=== PATIENT | female | born 1955 | race Caucasian/White ===

== ENCOUNTER → 2018-05-04 | Outpatient (CLI) | payer BC ==
[~2018-05-04] MED LIST: ACET325T38 PO; ALLO; ALLOPURINOL PO; ALLP100T PO; ASPI-586 PO; BUPR-168 PO; FENO134C PO; FLUT1DIS26 IH; FURO40TA4 PO; HYDR1TAB66 PO; IBUP-15 PO; IBUP-30 PO; IBUP1TAB17 PO; IBUP50DR PO; LEVO75TA57 PO; LEVO75TA6 PO; LOVA20TA2 PO; LOVA40TA2 PO; LVT.025T PO; LVT.05T PO; METO-272 PO; METO-370 PO; MNTL10T PO; OXYC-12 PO; POTA10CA43 PO; SLMFT1E INH; SPIR50TA27 PO; TERB250T PO; TRIA1TAB3 PO
--- NOTE | 2018-05-04 08:36 | Diagnostic Imaging Report ---
INDICATION: Right upper quadrant pain. TECHNIQUE: Multiple grayscale sonographic images were obtained of the right upper quadrant of the abdomen. CORRELATION STUDY: None. FINDINGS: LIVER: There is overall diffusely increased density throughout the liver parenchyma. This does limit echo penetration and overall evaluation. This is likely largely attributed to fatty infiltration. Within the right lobe, there is a questionable irregular heterogeneous area of increased echogenicity measuring approximately 2 cm. This may correspond to a low-density lesion on prior CT imaging. If so, it may be slightly larger. The overall liver length is enlarged at 21 cm. GALLBLADDER: No shadowing gallstones. Borderline gallbladder wall thickening at 3 mm. COMMON BILE DUCT: Not visualized but demonstrates no suggestion for significant dilatation. PANCREAS: Obscured by overlying bowel gas and not well visualized. RIGHT KIDNEY: Measures 9.9 cm. No hydronephrosis. AORTA/IVC: Not well visualized. OTHER: None. IMPRESSION: 1. Hepatomegaly with likely changes of hepatic steatosis. There is overall limited echo penetration and evaluation of the liver parenchyma. 2. There is suggestion of an approximately 2 cm heterogeneous hyperechoic mass within the right lobe. This may correspond to the low-density mass previously demonstrated on CT imaging. If so, this does appear to be larger. This could potentially reflect a benign cavernous hemangioma, particularly given the questionable interval increase in size, but other lesions are not excluded. I would recommend a followup contrasted CT of the abdomen with liver mass protocol be obtained for further assessment. Dictated by: Dictated on workstation # [id number]
== END ==
LOC: RAD 06:46
DX: R10.11 Right upper quadrant pain (principal)
CPT/HCPCS: 76705

== ENCOUNTER → 2018-05-05 | Outpatient (CLI) | payer BC ==
--- NOTE | 2018-05-05 12:03 | Diagnostic Imaging Report ---
INDICATION: Routine screening. Comparison is made with prior mammogram from 04/15/2013. 2-D and 3-D bilateral screening mammography was performed with computer-aided detection (CAD) system. FINDINGS: Scattered fibronodular densities are identified bilaterally. The circumscribed nodule in the upper left breast appears slightly increased in size when compared with prior exam. This is located approximately 7-8 cm from the nipple. Further evaluation with ultrasound is recommended. No spiculated mass or malignant-appearing microcalcifications are seen. Axillae are unremarkable. IMPRESSION: Enlarging circumscribed nodule in the upper left breast 7-8 cm from the nipple. Further evaluation of this area with ultrasound is recommended. ACR BI-RADS Category 0: Incomplete. (Needs additional imaging evaluation). Result letter will be mailed to the patient. Note: At least 10% of breast cancer is not imaged by mammography. Dictated by: Dictated on workstation # [id number]
== END ==
LOC: RAD 07:42
DX: Z12.31 Encounter for screening mammogram for malignant neoplasm of breast (principal); N63.20 Unspecified lump in the left breast, unspecified quadrant
CPT/HCPCS: 77067

== ENCOUNTER 2018-05-07 05:32 | Outpatient (CLI) | payer BC ==
[~2018-05-07] VITALS: Ht 160 cm; Wt 123.4 kg
[~2018-05-07 05:32] MED LIST changes: -ACET325T38 PO; -ASPI-586 PO; -BUPR-168 PO; -FENO134C PO; -FLUT1DIS26 IH; -LEVO75TA6 PO; -LOVA40TA2 PO; -METO-370 PO; -TRIA1TAB3 PO
[2018-05-07] MEDS ORDERED: LEVO75TA6 PO (15:59)
[2018-05-07] MEDS ORDERED: FLUT1DIS26 IH (15:59)
[2018-05-07] MEDS ORDERED: BUPR-168 PO (15:59)
[2018-05-07] MEDS ORDERED: LOVA40TA2 PO (15:59)
[2018-05-07] MEDS ORDERED: TRIA1TAB3 PO (15:59)
[2018-05-07] MEDS ORDERED: ACET325T38 PO (15:59)
[2018-05-07] MEDS ORDERED: METO-370 PO (15:59)
[2018-05-07] MEDS ORDERED: ASPI-586 PO (15:59)
[2018-05-07] MEDS ORDERED: FENO134C PO (15:59)
== END 2018-05-07 16:01 ==
LOC: PREOP 05:32
PROVIDERS: ATTEND Surgery
DX: Z01.818 Encounter for other preprocedural examination (principal); R19.5 Other fecal abnormalities; Z86.010 Personal history of colon polyps

== ENCOUNTER → 2018-05-08 | Outpatient (CLI) | payer BC ==
[~2018-05-08] MED LIST changes: +ACET325T38 PO; +ASPI-586 PO; +BUPR-168 PO; +FENO134C PO; +FLUT1DIS26 IH; +IOHEXOL 350 MG/ML 100 ML (OMNIPAQUE 350) VIAL IV ONE; +LEVO75TA6 PO; +LOVA40TA2 PO; +METO-370 PO; +NS 250 ML (IVPB) BAG IV ONE; +TRIA1TAB3 PO
--- NOTE | 2018-05-08 09:09 | Diagnostic Imaging Report ---
PROCEDURE: CT abdomen with and without contrast. TECHNIQUE: Multiple contiguous axial CT images of the abdomen were obtained prior to and after intravenous administration of iodinated contrast. INDICATION: Liver mass and hepatomegaly. COMPARISON: Comparison is made with prior CT from 04/16/2013. FINDINGS: The lung bases are clear. The liver demonstrates generalized low density consistent with hepatic steatosis. There is a rounded low density in the left lobe of the liver measuring 12 mm. This compares with approximately [address] from 2013. The low-density lesion more posterior in the right lobe near the dome is not appreciated today. No new liver lesion is seen. The gallbladder is unremarkable. No biliary duct dilatation is identified. The pancreas and spleen are unremarkable. No adrenal mass is seen. Cortical low densities in the left kidney are noted and suggestive of small cysts. Aorta is calcified but nonaneurysmal. There is no central retroperitoneal or mesenteric lymphadenopathy. Visualized bowel loops are normal caliber. There is no ascites. IMPRESSION: Hepatic steatosis. There is a 12 mm circumscribed low density lesion in the left lobe of the liver, fairly stable when compared with study from 2013. No additional liver masses are detected. No abdominal lymphadenopathy is seen. Dictated by: Dictated on workstation # [id number]
== END ==
LOC: RAD 07:42
DX: R16.0 Hepatomegaly, not elsewhere classified (principal)
CPT/HCPCS: 74170

== ENCOUNTER → 2018-05-20 | Outpatient (CLI) | payer BC ==
[~2018-05-20] MED LIST changes: -IOHEXOL 350 MG/ML 100 ML (OMNIPAQUE 350) VIAL IV ONE; -NS 250 ML (IVPB) BAG IV ONE
--- NOTE | 2018-05-20 14:38 | Diagnostic Imaging Report ---
INDICATION: Left breast density. This study performed for further evaluation. Correlation is made with screening mammogram from 05/05/2018. Sonographic interrogation of left breast does show a circumscribed simple appearing cyst at 11 o'clock location approximately 5 cm from the nipple, likely accounting for the mammographic density. No internal vascularity is seen. No solid mass is identified. IMPRESSION: BI-RADS 2 Simple cyst 11 o'clock location of the left breast, likely accounting for the mammographic density. Patient may return to routine annual screening TECHNIQUE: Multiple real-time grayscale images were obtained over the left upper extremity in various projections. Additional duplex Doppler and color Doppler images were also obtained. FINDINGS: The left jugular, subclavian, axillary, brachial, basilic, and cephalic veins demonstrate normal response to compression, augmentation, and Valsalva. There are no abnormal left upper extremity fluid collections or masses. IMPRESSION: No evidence of deep venous thrombosis in the left upper extremity. ACR BI-RADS Category 2: Benign findings. Dictated by: Dictated on workstation # [id number]
== END ==
LOC: RAD 13:39
DX: N60.02 Solitary cyst of left breast (principal); N63.20 Unspecified lump in the left breast, unspecified quadrant
CPT/HCPCS: 76642

== ENCOUNTER → 2018-06-05 | Day surgery (SDC) | payer BC ==
[~2018-06-05] VITALS: Ht 160 cm; Wt 123.4 kg
[~2018-06-05] MED LIST changes: +ACETAMINOPHEN 325 MG TABLET PO PRN; +HYDROcodone/APAP 5 MG/325 MG (LORTAB) TAB PO PRN; +LIDOCAINE JELLY 2% (XYLOCAINE) 5 ML TUBE MM PRN; +LIDOCAINE JELLY 2% (XYLOCAINE) 5 ML TUBE ONE; +MIDAZOLAM 2 MG/2 ML (VERSED) VIAL IVP ONE; +MIDAZOLAM 2 MG/2 ML (VERSED) VIAL ONE; +NS IV 500 ML 500 ML IV PRN; +NS IV 500 ML 500 ML ONE; +ONDANSETRON 4 MG/2 ML (SDV) Z0FRAN IV PRN; +fentaNYL INJECTION 100 MCG/2 ML AMP IVP ONE; +fentaNYL INJECTION 100 MCG/2 ML AMP ONE; +morphine INJ 10 MG/ML 1ML (SYR OR VIAL) IV PRN
[2018-06-05 11:17] VITALS: BP 147/85
--- NOTE | 2018-06-05 11:36 | Conscious Sedation/ASA ---
Conscious Sedation Pre-Proced Time Reviewed: 11:30 ASA Class: 2 Airway Mallampati Classification: (cherokee appropriate class) I. II. III, IV Lungs Heart ASA score ASA 1: a normal healthy patient ASA 2: a patient with a mild systemic disease (mid diabetes, controlled hypertension, obesity ASA 3: a patient with a severe systemic disease that limits activity (angina , COPD, prior Myocardial infarction) ASA 4: a patient with an incapacitating disease that is a constant threat to life (CHF, renal failure) ASA 5: a moribund patient not expected to survive 24 hrs. (ruptured aneurysm) ASA 6: a declared brain patient whose organs are being harvested. For emergent operations, add the letter E after the classification Grade 2 Sedation Plan: Analgesia, Amnesia, Plan communicated to team members, Discussed options with patient/fam, Discussed risks with patient/fam Note The patient is an appropriate candidate to undergo the planned procedure, sedation, and anesthesia. The patient immediately re-assessed prior to indication. MAXWELL GALE MD Jun 05, 2018 11:36 am
--- NOTE | 2018-06-05 11:37 | Progress Note-Pre Operative ---
Pre-Operative Progress Note H&P Reviewed The H&P was reviewed, patient examined and no changes noted. Date Seen by Provider: Jun 05, 2018 Time Seen by Provider: 11:30 Date H&P Reviewed: Jun 05, 2018 Time H&P Reviewed: :30 Pre-Operative Diagnosis: rectal bleed, hx polyp MAXWELL GALE MD Jun 05, 2018 11:37 am
--- OUTSIDE RECORDS SUMMARY | 2018-06-05 11:50 | XMS REPORT | Continuity of Care Document ---
Author Author [facility] Organization [facility] Address Unknown Phone Unavailable Allergies Active Description Code Type Severity Reaction Onset Reported/Identified Relationship to Patient Clinical Status Yes celecoxib [id number] Drug Allergy Severe KEANU 05/07/2018 Yes naproxen [id number] Drug Allergy Unknown N/A 05/07/2018 Medications There is no data. Problems Date Dx Coded Attending Type Code Diagnosis Diagnosed By 04/29/2018 ESA ORTIZ MD Ot V76.12 OTH SCREEN MAMMO-MALIGN NEOPLASM OF MARTINEZ 04/29/2018 ESA ORTIZ MD Ot 562.10 DIVERTICULOSIS COLON (W/O MENT OF HEMORR 04/29/2018 ESA ORTIZ MD Ot 571.8 CHRONIC LIVER DIS NEC 04/29/2018 ESA ORTIZ MD Ot 626.6 METRORRHAGIA 04/29/2018 ESA ORTIZ MD Ot 626.2 EXCESSIVE MENSTRUATION 05/05/2018 ESA ORTIZ MD Ot R10.11 RIGHT UPPER QUADRANT PAIN Procedures There is no data. Results There is no data. Encounters ACCT No. Visit Date/Time Discharge Status Pt. Type Provider Facility Loc./Unit Complaint [id number] 05/05/2018 07:42:00 05/05/2018 23:59:59 CLS Outpatient ESA ORTIZ MD [facility] RAD SCREENING MAMMOGRAPHY [id number] 05/05/2018 07:17:00 05/05/2018 23:59:59 CLS Preadmit ESA ORTIZ MD [facility] RAD LIVER MASS [id number] 05/04/2018 06:46:00 05/04/2018 23:59:59 CLS Outpatient ESA ORTIZ MD [facility] RAD RUQ PAIN [id number] 04/21/2013 12:58:00 04/21/2013 23:59:59 CLS Outpatient ESA ORTIZ MD [facility] RAD ABN BLEEDING [id number] 04/16/2013 08:32:00 04/16/2013 23:59:59 CLS Outpatient ESA ORTIZ MD [facility] RAD ENLARGED UTERUS, VAGINAL BLEEDING [id number] 04/15/2013 10:28:00 04/15/2013 23:59:59 CLS Outpatient ESA ORTIZ MD [facility] RAD SCREENING [id number] 05/22/2018 08:41:00 Document Registration
--- NOTE | 2018-06-05 12:24 | Progress Note-Post Operative ---
Post-Operative Progess Note Surgeon (s)/Director Ship (s) Surgeon MAXWELL GALE MD Director Ship: none Pre-Operative Diagnosis rectal bleed, hx polyp Post-Operative Diagnosis chronic stage 2-3 ext and int hemorrhoids, mild sigmoid diverticulosis, small rectosigmoid lesion likely lipoma Procedure & Operative Findings Date of Procedure 06/05/18 Procedure Performed/Findings Colonoscopy with bx. Anesthesia Type CS Estimated Blood Loss Estimated blood loss (mL): minimal Specimens/Packing Specimens Removed rectosigmoid lesion MAXWELL GALE MD Jun 05, 2018 12:24 pm
[2018-06-05 12:25] VITALS: BP 99/59
--- NOTE | 2018-06-05 12:25 | Discharge Inst-Surgical ---
D/C Lap Instructions-SHAHLA Follow Up 5 yrs Activity as tolerated High Fiber Diet 25g or more per day Avoid Alcohol, Caffeine, Spicy [place] and Acid foods. Drink 64 fluid oz or more of fluids per day. Symptoms to Report: Fever over 101 degree F, Nausea/Vomiting If any problems/questions: Contact your physician or go to Emergency Room MAXWELL GALE MD Jun 05, 2018 12:25 pm
[2018-06-05 13:00] VITALS: BP 109/57
[2018-06-05 13:29] VITALS: BP 109/57
--- NOTE | 2018-06-05 19:10 | OPERATIVE REPORT ---
DATE OF SERVICE: 06/05/2018 ATTENDING PRIMARY CARE PHYSICIAN: Akshat Kenny MD PREOPERATIVE DIAGNOSES: Family history of colon cancer, history of polyp, heme-positive stools. POSTOPERATIVE DIAGNOSES: Chronic, between stage II and III, external and internal hemorrhoids; mild sigmoid diverticulosis; small lesion of the rectosigmoid junction, which appeared to be more consistent with a benign submucosal lipoma. PROCEDURE: Colonoscopy with biopsy. SURGEON: Maxwell Gale MD ANESTHESIA: Conscious sedation. ESTIMATED BLOOD LOSS: Minimal. FINDINGS: Chronic, between stage II and III, external and internal hemorrhoids with mild irritation and inflammation, no active bleeding. There was a mild sigmoid diverticulosis. At the rectosigmoid junction, there was a small submucosal lesion, which is more consistent with a lipoma, which had the characteristics of a lipoma upon biopsy. DISPOSITION: The patient tolerated the procedure well. INDICATIONS: The patient is a 62-year-old female in need of a followup colonoscopy. Her last colonoscopy was around 2008. She reports that she is doing well, however has started to do a ketogenic diet, high in proteins and fats and low in carbohydrates and because of this has increased constipation. She reports that with these harder stools and constipation she has noticed irritation of hemorrhoids as well as small amounts of self-limited blood. She states that she has had a colonoscopy before where polyps were identified, biopsied and found to be benign. She does have a family history of colon cancer with her mother being diagnosed with the disease. DESCRIPTION OF PROCEDURE: The patient was brought to the endoscopy suite, laid in the left lateral decubitus position. After adequate IV pain and sedating medications and conscious sedation anesthesia, a digital rectal examination was performed. Chronic, between stage II and III, external and internal hemorrhoids were identified with some mild irritation as well as edema; however, no active bleeding. Normal sphincter tone was felt and there were no palpable masses. The endoscope was then intubated to the anus and the rectum gently insufflated. The endoscope was then advanced to the valves of [place] of the rectum. At the rectosigmoid junction, a small lesion was identified, which was smooth and soft upon manipulation with the biopsy forceps, more consistent with a submucosal lipoma versus a polyp. A biopsy was taken with forceps and electrocautery with visualization of good hemostasis. The endoscope was then advanced to the sigmoid colon where a mild sigmoid diverticulosis identified. There were no mucosal inflammatory changes to indicate any active diverticulitis. The endoscope was then advanced through the remainder of the descending, transverse and ascending colon to the cecum. These segments were normal. The endoscope was then slowly withdrawn while taking a second look and suctioning of residual air with no additional findings. The patient tolerated the procedure well. We will recommend continue conservative medical management with a high fiber diet with at least 25 to 30 g of fiber per day as well as copious amounts of water with the endpoint being soft stools on a daily basis. If her hemorrhoidal irritation as well as bleeding worsens, we will have her follow up for reevaluation as well as possible formal hemorrhoidal cushion excision of both external and internal ones. She does not need another colonoscopy for another 5 years otherwise. Job ID: [id number] DocumentID: [id number] Dictated Date: 06/05/2018 12:18:37 Verifier Operator Date: 06/05/2018 19:09:15 Dictated By: MAXWELL GALE MD MTDD
== END | disposition home or self-care (01) ==
LOC: ENDO 10:54
PROVIDERS: ATTEND Surgery
DX: K63.5 Polyp of colon (principal); K64.1 Second degree hemorrhoids; K57.30 Diverticulosis of large intestine without perforation or abscess without bleeding; I10 Essential (primary) hypertension; Z87.19 Personal history of other diseases of the digestive system; Z80.0 Family history of malignant neoplasm of digestive organs; Z87.891 Personal history of nicotine dependence
CPT/HCPCS: 88305

== ENCOUNTER → 2019-10-14 | Outpatient (CLI) | payer BC ==
[~2019-10-14] MED LIST changes: -ACETAMINOPHEN 325 MG TABLET PO PRN; -HYDROcodone/APAP 5 MG/325 MG (LORTAB) TAB PO PRN; -LIDOCAINE JELLY 2% (XYLOCAINE) 5 ML TUBE MM PRN; -LIDOCAINE JELLY 2% (XYLOCAINE) 5 ML TUBE ONE; -MIDAZOLAM 2 MG/2 ML (VERSED) VIAL IVP ONE; -MIDAZOLAM 2 MG/2 ML (VERSED) VIAL ONE; -NS IV 500 ML 500 ML IV PRN; -NS IV 500 ML 500 ML ONE; -ONDANSETRON 4 MG/2 ML (SDV) Z0FRAN IV PRN; -fentaNYL INJECTION 100 MCG/2 ML AMP IVP ONE; -fentaNYL INJECTION 100 MCG/2 ML AMP ONE; -morphine INJ 10 MG/ML 1ML (SYR OR VIAL) IV PRN
--- NOTE | 2019-10-14 09:59 | Diagnostic Imaging Report ---
INDICATION: Twisted right knee with pain on the medial side. TIME OF EXAM: 9:47 a.m. Three views of the right knee were obtained. Alignment is normal. There is medial compartmental degenerative change with joint space narrowing and marginal spurring. There is mild patellofemoral degenerative change as well. The lateral compartment is maintained. The articular surfaces are smooth. No fracture, dislocation or effusion is identified. IMPRESSION: Degenerative changes, greatest involving the medial compartment. No acute bony abnormality is detected. Dictated by: Dictated on workstation # [id number]
== END ==
LOC: RAD 09:10
DX: M17.11 Unilateral primary osteoarthritis, right knee (principal)
CPT/HCPCS: 73562

== ENCOUNTER → 2019-12-14 | Outpatient (CLI) | payer BC ==
[~2019-12-14] MED LIST changes: -METO-370 PO; +METO50TA7 PO
--- NOTE | 2019-12-14 09:39 | Diagnostic Imaging Report ---
EXAMINATION: Magnetic resonance imaging of the right knee without intravenous contrast DATE: December 14, 2019. COMPARISON: Right knee radiograph 3 views. INDICATION: 64-year-old female, right knee injury in September 2019. TECHNIQUE: Multiplanar, multisequence non contrast enhanced MR imaging was accomplished. FINDINGS: MENISCI: There is a tear involving the posterior horn and posterior root attachment of the medial meniscus. There is roughly 50% volume loss of the posterior horn and posterior root attachment of the medial meniscus. There is medial meniscal extrusion which measures 5 mm. The lateral meniscus is intact. LIGAMENTS AND TENDONS: The anterior and posterior cruciate ligaments are intact. The medial collateral ligament is intact. The iliotibial band, mid third lateral capsular ligament, fibular collateral ligament, biceps femoris tendon and conjoined tendon are intact. The quadriceps tendon and patella ligament are intact. JOINT: There are broad areas of full-thickness cartilage loss of the patella and femoral trochlea. There are areas of full-thickness cartilage loss involving the weightbearing portion of the medial femoral condyle and adjacent medial tibial plateau. There is a full-thickness cartilage fissure of the lateral femoral condyle. There is a small knee joint effusion. There is no identified intra-articular body or prominent synovitis. BONE: There is mild degenerative related marrow edema adjacent to the medial compartment. There is no acute fracture, bone contusion, or evidence of osteonecrosis. BURSAE AND SOFT TISSUES: There is no Yates's cyst. There is nonspecific prepatellar subcutaneous edema. IMPRESSION: 1. Tear involving the posterior horn and posterior root attachment of the medial meniscus with 5 mm medial meniscal extrusion. 2. Intact lateral meniscus. 3. Intact anterior and posterior cruciate ligaments. Additional ligaments and tendons are intact. 4. Severe medial and patellofemoral compartment osteoarthritis and mild lateral compartment osteoarthritis. Small knee joint effusion without identified intra-articular body or prominent synovitis. 5. No acute fracture, bone contusion, or evidence of osteonecrosis. 6. Small Yates's cyst. Dictated by: Dictated on workstation # [id number]
== END ==
LOC: RAD 07:41
DX: M17.11 Unilateral primary osteoarthritis, right knee (principal); S83.241A Other tear of medial meniscus, current injury, right knee, initial encounter; M71.21 Synovial cyst of popliteal space [Baker], right knee
CPT/HCPCS: 73721

== ENCOUNTER → 2020-05-22 | Outpatient (CLI) | payer BC | LOC: LABNPT 08:54 | PROVIDERS: ATTEND Emergency Medicine | DX: Z20.828 Contact with and (suspected) exposure to other viral communicable diseases (principal) | CPT/HCPCS: 87635 ==

== ENCOUNTER → 2020-10-17 | Outpatient (CLI) | payer BC ==
[~2020-10-17] VITALS: Ht 160 cm; Wt 120.3 kg
[~2020-10-17] MED LIST changes: +BAMLANIVIMAB 700 MG in NS 200 ML IV ONE; +EPINEPHrine INJECTION 1 MG/ML AMP IM PRN; +diphenhydrAMINE 50 MG/ML INJ (BENADRYL) IV PRN
[2020-10-17 12:58] VITALS: BP 136/80
[2020-10-17 14:58] VITALS: BP 117/62
== END ==
LOC: INFUSION 12:55
PROVIDERS: ATTEND Emergency Medicine
DX: U07.1 COVID-19 (principal)

== ENCOUNTER → 2021-05-23 | Outpatient (CLI) | payer BC ==
[~2021-05-23] MED LIST changes: -BAMLANIVIMAB 700 MG in NS 200 ML IV ONE; -EPINEPHrine INJECTION 1 MG/ML AMP IM PRN; -diphenhydrAMINE 50 MG/ML INJ (BENADRYL) IV PRN
--- NOTE | 2021-05-23 15:47 | Diagnostic Imaging Report ---
CT CHEST SCREENING WO TECHNIQUE: Low-dose unenhanced CT of the chest was performed according to the screening protocol. Coronal MIP and sagittal MPR reformats are created. Automatic exposure controls were utilized to keep dose as low as reasonably achievable. INDICATION: 40 pack year history smoking. Quit smoking 5 years ago. COMPARISON: None available. FINDINGS: Pulmonary findings: No tracheal nodule. 3 mm average right apical pulmonary nodule (image 35, series 2). No suspicious pulmonary nodule. No edema or pneumonia. Extrapulmonary findings: No axillary or mediastinal lymphadenopathy. No pericardial or pleural effusion. Heart is normal in size. Normal caliber thoracic aorta. No concerning focal osseous lesion. IMPRESSION: No feature of clinically active lung cancer. Lung-RADS category: 2 - Benign appearance or behavior Recommendations: Continued annual screening with low-dose CT in 12 months. Dictated by: Dictated on workstation # [id number]
== END ==
LOC: RAD 12:15
PROVIDERS: ATTEND Nurse Practitioner Family
DX: Z12.2 Encounter for screening for malignant neoplasm of respiratory organs (principal); Z87.891 Personal history of nicotine dependence
CPT/HCPCS: 71271

== ENCOUNTER → 2021-09-11 | Outpatient (CLI) | payer BC ==
--- NOTE | 2021-09-11 14:02 | Diagnostic Imaging Report ---
PROCEDURE: US carotid duplex, bilateral. TECHNIQUE: Multiple real-time grayscale images were obtained over the carotid arteries in various projections, bilaterally. Additional spectral analysis and color Doppler duplex images were also obtained. INDICATION: Numbness, syncope and blurred vision. Examination shows mild atherosclerotic disease of the carotid and vertebral arteries with no significant stenosis or vessel irregularity. There is antegrade flow in all vessels. IMPRESSION: Mild disease. No significant abnormality is seen. Parameters based on the consensus panel Cabral-Scale and Doppler ultrasound criteria published August 2003, Radiology, Volume 229. DOPPLER (peak systolic velocity M/S Right Left CCA .91 1.03 ICA Proximal .58 .71 ICA Mid .80 .75 ICA Distal .69 .83 RATIO .96 .74 ECA .59 .95 VERT .47 .53 Dictated by: Dictated on workstation # [id number]
== END ==
LOC: CARD 12:15
PROVIDERS: ATTEND Nurse Practitioner Family
DX: I65.23 Occlusion and stenosis of bilateral carotid arteries (principal)
CPT/HCPCS: 93306; 93880

== ENCOUNTER → 2021-10-04 | Outpatient (CLI) | payer BC ==
[~2021-10-04] MED LIST changes: +REGADENOSON 0.4 MG/5 ML SYR (LEXISCAN) IV ONE
[2021-10-04] MEDS: CATHETER FLUSH 10 ML SYR IV PRN ×2 (07:46→09:21)
[2021-10-04 09:12] VITALS: BP 130/85
--- NOTE | 2021-10-05 15:53 | NUCLEAR STRESS TEST ---
REGADENOSON NUCLEAR STRESS Date of procedure: 10/04/2021. Primary care provider: Mattie Bryson MD Admitting physician: Abdelrahman Chi Jr., MD. INDICATION: Abnormal electrocardiogram. BASELINE ELECTROCARDIOGRAM: Sinus bradycardia 55 bpm with early transition STRESS TEST PROCEDURE: This was initially intended to be a treadmill nuclear stress test but the patient could not attain her target heart rate and the test was changed over to a pharmacological stress test. The patient was administered 0.4 mg of intravenous Regadenoson. The resting heart rate was 55 bpm and the peak heart rate was 94 bpm. The resting blood pressure was 121/69 mmHg and the minimum blood pressure was 118/76 mmHg. This represents a normal heart rate and a normal blood pressure response to Regadenoson. The test was stopped due to the protocol. There was no chest discomfort during the test. There were no arrhythmias during the test. There were no significant stress induced electrocardiogram changes. NUCLEAR PROCEDURE: The patient was administered 10.4 mCi of intravenous technetium 99m Tetrofosmin at rest for the rest images. The patient was subsequently administered 30.8 mCi of intravenous technetium 99m Tetrofosmin at peak stress for the stress images. Following an appropriate wait after each injection, imaging was obtained. The images were subsequently processed and reformatted in the usual views. Gated imaging was obtained. The image quality was adequate with a mild degree of gastrointestinal and breast attenuation artifact. CT attenuation correction was used as a adjunct to standard imaging. Both the corrected and uncorrected images were reviewed for interpretation. NUCLEAR RESULTS: There was normal myocardial perfusion in all segments, other th an breast attenuation artifact, without evidence of infarction or ischemia. There was normal left ventricular chamber size with an end-diastolic volume of 61 mL and an end-systolic volume of 15 mL. There was no evidence of transient ischemic dilatation. The TID ratio was 1.02. There was normal wall motion in all segments with a calculated ejection fraction of 75%. IMPRESSION: 1. Normal heart rate and blood pressure response to regadenoson. 2. There was no chest discomfort, arrhythmias, or electrocardiogram changes during the test. 3. There was normal myocardial perfusion in all segments, other than breast attenuation artifact, without evidence of infarction or ischemia. 4. There was normal wall motion in all segments with a calculated ejection fraction of 75%. Certain portions of this document may have been dictated utilizing voice recognition technology. Inherent to this technology, typographical and grammatical errors may exist. As much as I am diligent to identify and correct these mistakes, some errors may remain in the document. ABDELRAHMAN CHI JR, MD Oct 05, 2021 15:53
== END ==
LOC: CARD 07:45
PROVIDERS: ATTEND Internal Medicine Cardiovascular Disease
DX: R94.31 Abnormal electrocardiogram [ECG] [EKG] (principal)
CPT/HCPCS: 78452; 93017; A9502

== ENCOUNTER → 2021-12-27 | Outpatient (CLI) | payer MEDICARE, OTHER ==
[~2021-12-27] MED LIST changes: -FENO134C PO; +FENO134C21 PO; -REGADENOSON 0.4 MG/5 ML SYR (LEXISCAN) IV ONE
--- NOTE | 2021-12-27 16:29 | Diagnostic Imaging Report ---
PROCEDURE: MRI lumbar spine. TECHNIQUE: Multiplanar, multisequence MRI of the lumbar spine was performed without contrast. INDICATION: Back pain. COMPARISON: Correlation is limited to an abdominopelvic CT 05/08/2018. FINDINGS: There is trace grade 1 degenerative anterolisthesis of L3 on L4 and trace retrolisthesis grade 1 of L4 on L5 and L5 on S1. These are stable from the correlative CT. There are edematous Modic type I changes across the L4-L5 and to a lesser extent L5-S1 articular endplates. No acute appearing marrow pathology. There are scattered hemangiomas noted incidentally. No paravertebral mass, hemorrhage, or fluid collection. The conus appeared unremarkable. Ligamentous structures were intact. T12-L1: There is mild disc desiccation and circumferential bulge. No focal herniation. No resultant stenosis. L1-L2: There is disc desiccation, stature loss, and bulge with anterior greater than posterior osteophyte disc material. There is no substantial stenosis. L2-L3: There is thickened ligamenta flava and facet arthrosis. There is mild disc desiccation and bulge. The constellation of findings results in mild left greater than right foraminal narrowing and mild central canal stenosis. L3-L4: There is hypertrophic facet arthrosis and buckled thickened ligamenta flava. There is likely a complex medially oriented left-sided synovial facet cyst measuring 8 x 7 mm. There is a diffuse disc bulge and endplate osteophytes. The constellation of findings severely stenose the thecal sac and results in severe left greater than right lateral recess stenosis as well as moderate biforaminal narrowing. L4-L5: Facet arthrosis, thickened ligamenta flava, disc bulge, and endplate osteophytes result in moderate canal stenosis. There is moderate severity biforaminal stenosis, greater left. There is an at least moderate degree of impingement upon the left lateral recess. L5-S1: Facet arthrosis, disc bulge, disc desiccation, and endplate osteophytes are present. Findings result in mild right and moderate left foraminal stenosis with mild canal narrowing. IMPRESSION: 1. Multilevel stable degenerative grade 1 listheses and lower lumbar Modic endplate changes. No acute bony pathology or fracture. 2. Multifactorial degenerative changes result in substantial degrees of multilevel canal, foraminal, and recess stenoses, detailed level by level above, most advanced at the L3-L4 level. Dictated by: Dictated on workstation # [id number]
--- NOTE | 2021-12-27 16:58 | Diagnostic Imaging Report ---
PROCEDURE: MRI left upper extremity without contrast. TECHNIQUE: Multiplanar, multisequence non contrast-enhanced MRI of the left upper extremity was accomplished. INDICATION: Left shoulder pain and low back pain. COMPARISON: None. FINDINGS: No acute fracture is seen in the left shoulder. Alignment appears normal. There are at least moderate degenerative changes in the glenohumeral joint with inferior osteophytes. There is a small joint effusion. There is moderate fluid in the subacromial/subdeltoid bursa. There are moderate degenerative changes in the acromioclavicular joint. There is mild tendinosis in the supraspinatus tendon with no tears seen. The infraspinatus and teres minor tendons appear intact. The subscapularis tendon demonstrates a small low-grade partial-thickness tear at the insertion but is otherwise intact. No muscular atrophy is seen. The long head of the biceps tendon is normal in course and signal. The glenoid labrum is suboptimally evaluated in the absence of intra-articular contrast. There does appear to be degeneration of the inferior and posterior labrum. The acromion has a curved undersurface. The coracoclavicular and coracoacromial ligaments are intact. Soft tissues about the left shoulder demonstrate no acute abnormality. IMPRESSION: 1. Moderate degenerative changes in the left shoulder. 2. Mild tendinosis and low-grade partial-thickness tear in the left rotator cuff with no high-grade partial-thickness or full-thickness tear. 3. Minimal joint effusion. 4. Moderate subacromial/subdeltoid bursitis. Dictated by: Dictated on workstation # [id number]
== END ==
LOC: RAD 14:00
PROVIDERS: ATTEND Nurse Practitioner Family
DX: M75.112 Incomplete rotator cuff tear or rupture of left shoulder, not specified as traumatic (principal); M19.012 Primary osteoarthritis, left shoulder
CPT/HCPCS: 72148; 73221

== ENCOUNTER → 2022-02-25 | Outpatient (CLI) | payer MEDICARE, OTHER ==
--- NOTE | 2022-02-25 10:28 | Diagnostic Imaging Report ---
PROCEDURE: US Gallbladder. TECHNIQUE: Multiple real-time grayscale images were obtained over the right upper quadrant in various projections. INDICATION: Right upper quadrant pain. COMPARISON: CT abdomen and pelvis from 05/08/2018. FINDINGS: Diffuse increased echogenicity with diminished sound transmission of the liver is indicative of steatosis. The liver is enlarged measuring 25 cm. Due to the advanced hepatic steatosis, assessment for focal liver mass is suboptimal. Within the visualized aspects liver, no mass can be seen. Gallbladder is normally filled without stones or sludge. No gallbladder wall thickening or pericholecystic fluid. Common bile duct measures 0.2 cm in diameter. Right kidney is normal in size without hydronephrosis, mass or cortical thinning. Pancreas is obscured by overlying bowel gas. IMPRESSION: 1. Diffuse and severe hepatic steatosis. 2. No cholelithiasis, biliary duct dilation or features of acute cholecystitis. Dictated by: Dictated on workstation # [id number]
== END ==
LOC: RAD 09:00
PROVIDERS: ATTEND Nurse Practitioner Family
DX: K76.0 Fatty (change of) liver, not elsewhere classified (principal)
CPT/HCPCS: 76705

== ENCOUNTER → 2022-03-14 | Outpatient (CLI) | payer MEDICARE, OTHER ==
[~2022-03-14] MED LIST changes: +CATHETER FLUSH 10 ML SYR IVP PRN
--- NOTE | 2022-03-14 13:05 | Diagnostic Imaging Report ---
INDICATION: Right upper quadrant pain. TECHNIQUE: 5.3 mCi Tc-99m was utilized. 8 ounces of Ensure for fatty stimulation. FINDINGS: There is prompt uptake of isotope by the liver. The gallbladder and bile ducts are visualized in a normal fashion. There is normal flow of isotope into the small bowel. Following fatty meal of Ensure, 60-minute imaging showed gallbladder ejection fraction of 42%. IMPRESSION: Normal hepatobiliary study with normal ejection fraction following fatty meal stimulation. Dictated by: Dictated on workstation # [id number]
== END ==
LOC: CARD 10:00
PROVIDERS: ATTEND Nurse Practitioner Family
DX: K82.9 Disease of gallbladder, unspecified (principal)
CPT/HCPCS: 78227; A9537

== ENCOUNTER → 2022-12-24 | Outpatient (CLI) | payer MEDICARE, OTHER ==
[~2022-12-24] MED LIST changes: -CATHETER FLUSH 10 ML SYR IVP PRN
--- NOTE | 2022-12-24 14:20 | Diagnostic Imaging Report ---
INDICATION: Spinal stenosis. COMPARISON: Exam is correlated with lumbar MR of 12/27/2021. FINDINGS: Grade 1 anterolisthesis of L3 on L4 is unchanged in magnitude from prior with no visible spondylolysis defect. The lumbar statures are stable and normal. There is degenerative disc space narrowing, endplate sclerosis, and osteophytes as well as facet arthrosis throughout the lumbar spine. Disc and endplate disease remain most severe at L4-L5 and L5-S1. Lateral views are performed at flexion, neutral, and extension maneuvers. The L3 on L4 anterolisthesis with extension measured about 5.8 mm and with flexion about 4.5 mm. In the neutral position, it was about 6 mm. IMPRESSION: 1. Mild grade 1 anterolisthesis of L3 on L4 shows slight reduction with flexion and exacerbation with extension but with only about 1.5 mm of movement. 2. Remaining levels align normally with severe degenerative changes, greatest at the C4-C5 and L5-S1 levels, chronic, with no compression deformity or other fracture pattern visualized. Dictated by: Dictated on workstation # [id number]
== END ==
LOC: RAD 13:26
PROVIDERS: ATTEND Neurological Surgery
DX: M48.062 Spinal stenosis, lumbar region with neurogenic claudication (principal); M43.16 Spondylolisthesis, lumbar region; M47.812 Spondylosis without myelopathy or radiculopathy, cervical region; M47.817 Spondylosis without myelopathy or radiculopathy, lumbosacral region
CPT/HCPCS: 72110

== ENCOUNTER → 2023-04-11 | Outpatient (CLI) | payer MEDICARE, OTHER ==
--- NOTE | 2023-04-14 09:47 | Diagnostic Imaging Report ---
INDICATION: Routine screening. COMPARISON: 06/25/2019 and 05/05/2018. TECHNIQUE: 2D and 3D bilateral screening mammography was performed with CAD. FINDINGS: Scattered fibroglandular densities are identified bilaterally. The parenchymal pattern is stable. No dominant mass or malignant-appearing microcalcifications are seen. The axillae are unremarkable. IMPRESSION: No mammographic features suspicious for malignancy are identified. ACR BI-RADS Category 1: Negative. Result letter will be mailed to the patient. Note: At least 10% of breast cancer is not imaged by mammography. Dictated by: Dictated on workstation # [id number]
== END ==
LOC: RAD 14:14
PROVIDERS: ATTEND Nurse Practitioner Family
DX: Z12.31 Encounter for screening mammogram for malignant neoplasm of breast (principal)
CPT/HCPCS: 77063; 77067